=== PATIENT | male | born 1970 | race Caucasian/White ===

== ENCOUNTER 2022-06-08 14:24 | Inpatient (IN) | payer MEDICARE, MEDICAID ==
[2022-06-08] MEDS: LORazepam 2 MG TABLET PO PRN (17:13)
[2022-06-08] MEDS: HALOPERIDOL 5 MG TABLET PO PRN (17:13)
[2022-06-08] MEDS ORDERED: INFLUENZA VIRUS VACCINE QVS 2022-23 (6MO+)/PF 60 MCG/0.5 ML SYRINGE IM. ONE (18:45)
[2022-06-08 21:14] VITALS: BP 100/61
[2022-06-09] MEDS ORDERED: ALBUTEROL SULFATE HFA 90 MCG/PUFF 8 GM INHALER IH PRN (09:15)
[2022-06-09] MEDS ORDERED: NICOTINE 14 MG/24 HOUR PATCH TD PRN (09:15)
[2022-06-09] MEDS ORDERED: LOPERAMIDE HCL 2 MG CAPSULE PO PRN (09:15)
[2022-06-09] MEDS ORDERED: MAGNESIUM HYDROXIDE SUSPENSION 30 ML UDCUP PO PRN (09:15)
[2022-06-09] MEDS ORDERED: ONDANSETRON HCL 4 MG TABLET PO PRN (09:15)
[2022-06-09] MEDS ORDERED: MAG HYDROX/AL HYDROX/SIMETH ES 30 ML SUSPENSION UDCUP PO PRN (09:15)
[2022-06-09] MEDS ORDERED: CloNIDine HCL 0.1 MG TABLET PO PRN (09:15)
[2022-06-09] MEDS ORDERED: GuaiFENesin/D-METHORPHAN [SUGAR-FREE] 200-20MG/10 ML SYRUP UDCUP PO PRN (09:15)
[2022-06-09] MEDS ORDERED: DOCUSATE SODIUM 100 MG CAPSULE PO PRN (09:15)
[2022-06-09] MEDS ORDERED: PETROLATUM,WHITE 28 GM JELLY TP PRN (09:15)
[2022-06-09] MEDS: LORazepam 2 MG TABLET PO PRN (11:28)
[2022-06-09] MEDS: HALOPERIDOL 5 MG TABLET PO PRN (11:28)
[2022-06-09] MEDS ORDERED: ChlorproMAZINE HCL 50 MG/2 ML AMP ONE (11:47)
[2022-06-09] MEDS ORDERED: LORazepam 2 MG/ML VIAL ONE (11:48)
[2022-06-09] MEDS ORDERED: DiphenhydrAMINE HCL 50 MG/ML VIAL ONE (11:48)
[2022-06-09] MEDS ORDERED: DiphenhydrAMINE HCL 50 MG/ML VIAL IM ONE (12:00)
[2022-06-09] MEDS ORDERED: LORazepam 2 MG/ML VIAL IM ONE (12:00)
[2022-06-09] MEDS ORDERED: ChlorproMAZINE HCL 50 MG/2 ML AMP IM ONE (12:00)
[2022-06-09] MEDS: DIVALPROEX SODIUM 500 MG DR TABLET PO SCH (20:57)
[2022-06-09] MEDS: OLANZapine 5 MG RAPDIS TABLET PO SCH (20:58)
[2022-06-10] MEDS ORDERED: LORazepam 2 MG/ML VIAL IM ONE (08:00)
[2022-06-10] MEDS ORDERED: ChlorproMAZINE HCL 50 MG/2 ML AMP IM ONE (08:00)
[2022-06-10] MEDS ORDERED: DiphenhydrAMINE HCL 50 MG/ML VIAL IM ONE (08:00)
[2022-06-10] MEDS: OLANZapine 5 MG RAPDIS TABLET PO SCH ×2 (09:00→21:00)
[2022-06-10] MEDS: DIVALPROEX SODIUM 500 MG DR TABLET PO SCH ×2 (09:00→21:00)
[2022-06-10 21:32] VITALS: BP 104/68
[2022-06-10] MEDS: HALOPERIDOL 5 MG TABLET PO PRN (23:52)
[2022-06-10] MEDS: LORazepam 2 MG TABLET PO PRN (23:52)
[2022-06-10] MEDS: ZOLPIDEM TARTRATE 10 MG TABLET PO PRN (23:52)
[2022-06-11 07:10] LABS: AMPHET/METH SCREEN,URINE NEGATIVE (NEGATIVE); BARBITURATE SCREEN, URINE NEGATIVE (NEGATIVE); BENZODIAZEPINES SCREEN,URINE NEGATIVE (NEGATIVE); CANNABINOID SCREEN,URINE NEGATIVE (NEGATIVE); COCAINE SCREEN,URINE NEGATIVE (NEGATIVE); METHADONE SCREEN, URINE NEGATIVE (NEGATIVE); OPIATE SCREEN,URINE NEGATIVE (NEGATIVE)
[2022-06-11 07:19] LABS: PHENCYCLIDINE SCREEN,URINE NEGATIVE (NEGATIVE)
[2022-06-11 07:54] LABS: APPEARANCE,URINE CLEAR (CLEAR); BILIRUBIN,URINE NEGATIVE (NEGATIVE); GLUCOSE, URINE (UA) NEGATIVE (NEGATIVE); KETONES,URINE NEGATIVE (NEGATIVE); LEUKOCYTE ESTERASE ,URINE NEGATIVE (NEGATIVE); NITRATE,URINE NEGATIVE (NEGATIVE); OCCULT BLOOD,URINE NEGATIVE (NEGATIVE); PH,URINE 6.5 (5.0-8.0); PROTEIN,URINE TRACE mg/dL (NEGATIVE); SPECIFIC GRAVITIY, URINE 1.026 (1.003-1.030); UROBILINOGEN,URINE <=1.0 mg/dL (<=1.0)
[2022-06-11] MEDS: OLANZapine 5 MG RAPDIS TABLET PO SCH ×3 (09:00→21:00)
[2022-06-11] MEDS: DIVALPROEX SODIUM 500 MG DR TABLET PO SCH ×3 (09:00→21:00)
[2022-06-11] MEDS: LORazepam 2 MG TABLET PO PRN (10:41)
[2022-06-12 06:50] LABS: EOSINOPHILS % (AUTO) 4.1 % (1.0-6.0); HEMOGLOBIN 11.5 g/dL (13.5-17.5); LYMPHOCYTES # (AUTO) 1.5 K/uL (1.0-4.8); LYMPHOCYTES % (AUTO) 28.7 % (22.0-44.0); MEAN CORPUSCULAR HEMOGLOBIN 30.2 pg (26.0-34.0); MEAN CORPUSCULAR HGB CONC 33.9 G/dL (31.0-37.0); MEAN CORPUSCULAR VOLUME 89 fL (80-100); MONOCYTES # (AUTO) 0.5 K/uL (0.1-1.0); MONOCYTES % (AUTO) 8.7 % (2.0-9.0); NEUTROPHILS % (AUTO) 57.5 % (40.0-70.0); PLATELET COUNT (AUTO) 286 K/uL (150-450); RED BLOOD CELL COUNT(AUTO) 3.82 MIL/uL (4.50-5.90); RED CELL DISTRIBUTION WIDTH 13.8 % (11.5-14.5)
[2022-06-12 07:30] LABS: HEMOGLOBIN A1C 5.3 % (3.8-5.6)
[2022-06-12 07:39] LABS: ALANINE AMINOTRANSFERASE 34 U/L (12-78); ALBUMIN 3.4 g/dL (3.4-5.0); ALKALINE PHOSPHATASE 90 U/L (46-116); ANION GAP 5 mmol/L (8-16); ASPARTATE AMINOTRANSFERASE 40 U/L (15-37); BILIRUBIN,TOTAL 0.2 mg/dL (0.1-1.0); CALCIUM, TOTAL 8.7 mg/dL (8.8-10.5); CARBON DIOXIDE 31 mmol/L (22-29); CHLORIDE 99 mmol/L (98-107); CHOL/HDL RATIO 3.6 (4.2-7.3); CHOLESTEROL 186 mg/dL (131-200); CREATININE 1.05 mg/dL (0.60-1.30); FREE T4 (FREE THYROXINE) 0.39 ng/dL (0.76-1.46); GLUCOSE,RANDOM 91 mg/dL (70-110); HDL CHOLESTEROL 51 mg/dL (40-60); LDL CHOL (CALC.) 108 mg/dL (0-130); POTASSIUM 4.4 mmol/L (3.5-5.1); SODIUM SERUM 135 mmol/L (136-145); TOTAL PROTEIN, SERUM 6.7 g/dL (6.4-8.2); TRIGLYCERIDES 135 mg/dL (15-150); UREA NITROGEN, BLOOD 21 mg/dL (7-18)
[2022-06-12 08:07] LABS: GLOMERULAR FILTR. RATE CALC > 60 mL/min (>60); THYROID STIMULATING HORMONE 137.71 uIU/mL (0.36-3.74)
[2022-06-12 08:29] VITALS: BP 140/89
[2022-06-12] MEDS: DIVALPROEX SODIUM 500 MG DR TABLET PO SCH ×2 (10:09→21:19)
[2022-06-12] MEDS: OLANZapine 5 MG RAPDIS TABLET PO SCH ×2 (10:09→21:19)
[2022-06-12] MEDS: HALOPERIDOL 5 MG TABLET PO PRN (16:22)
[2022-06-12] MEDS: LORazepam 2 MG TABLET PO PRN ×2 (16:22→21:20)
[2022-06-12 20:19] VITALS: BP 138/78
[2022-06-12] MEDS: ZOLPIDEM TARTRATE 10 MG TABLET PO PRN (21:20)
[2022-06-13 08:11] VITALS: BP 140/99
[2022-06-13] MEDS: OLANZapine 5 MG RAPDIS TABLET PO SCH ×2 (08:22→20:52)
[2022-06-13] MEDS: DIVALPROEX SODIUM 500 MG DR TABLET PO SCH ×2 (08:22→20:52)
[2022-06-13] MEDS: IBUPROFEN 400 MG TABLET PO PRN ×2 (08:25→16:35)
[2022-06-13] MEDS: ACETAMINOPHEN 325 MG TABLET PO PRN (14:39)
[2022-06-13] MEDS: HALOPERIDOL 5 MG TABLET PO PRN (16:15)
[2022-06-13] MEDS: LORazepam 2 MG TABLET PO PRN (16:15)
[2022-06-13 20:19] VITALS: BP 134/92
[2022-06-13] MEDS: ZOLPIDEM TARTRATE 10 MG TABLET PO PRN (20:52)
[2022-06-14] MEDS: IBUPROFEN 400 MG TABLET PO PRN (05:36)
[2022-06-14] MEDS: LEVOTHYROXINE SODIUM 100 MCG TABLET PO SCH (06:21)
[2022-06-14] MEDS: LORazepam 2 MG TABLET PO PRN ×2 (08:20→17:03)
[2022-06-14] MEDS: OLANZapine 5 MG RAPDIS TABLET PO SCH ×2 (08:20→20:44)
[2022-06-14] MEDS: HALOPERIDOL 5 MG TABLET PO PRN ×2 (08:20→17:04)
[2022-06-14] MEDS: DIVALPROEX SODIUM 500 MG DR TABLET PO SCH ×2 (08:20→20:44)
[2022-06-14 08:38] VITALS: BP 137/86
[2022-06-14 20:12] VITALS: BP 142/84
[2022-06-14] MEDS: ZOLPIDEM TARTRATE 10 MG TABLET PO PRN (20:44)
[2022-06-15] MEDS: LEVOTHYROXINE SODIUM 100 MCG TABLET PO SCH (06:24)
[2022-06-15] MEDS: DIVALPROEX SODIUM 500 MG DR TABLET PO SCH ×2 (08:02→20:29)
[2022-06-15] MEDS: LORazepam 2 MG TABLET PO PRN ×2 (08:02→20:28)
[2022-06-15] MEDS: HALOPERIDOL 5 MG TABLET PO PRN (08:02)
[2022-06-15] MEDS: OLANZapine 5 MG RAPDIS TABLET PO SCH ×2 (08:03→20:29)
[2022-06-15 08:26] LABS: GLUCOMETER DEV NAME(LOC) POC.BV
[2022-06-15 15:22] VITALS: BP 137/73
[2022-06-15 20:21] VITALS: BP 129/85
[2022-06-15] MEDS: ZOLPIDEM TARTRATE 10 MG TABLET PO PRN (20:28)
[2022-06-16] MEDS: HALOPERIDOL 5 MG TABLET PO PRN ×2 (06:31→16:09)
[2022-06-16] MEDS: LORazepam 2 MG TABLET PO PRN ×2 (06:31→16:09)
[2022-06-16] MEDS: LEVOTHYROXINE SODIUM 100 MCG TABLET PO SCH (06:31)
[2022-06-16 08:09] VITALS: BP 136/74
[2022-06-16] MEDS: OLANZapine 5 MG RAPDIS TABLET PO SCH ×2 (08:26→20:20)
[2022-06-16] MEDS: DIVALPROEX SODIUM 500 MG DR TABLET PO SCH ×2 (08:26→20:20)
[2022-06-16 20:15] VITALS: BP 133/90
[2022-06-16] MEDS: ZOLPIDEM TARTRATE 10 MG TABLET PO PRN (20:21)
[2022-06-17] MEDS: LEVOTHYROXINE SODIUM 100 MCG TABLET PO SCH (05:56)
[2022-06-17] MEDS: LORazepam 2 MG TABLET PO PRN ×2 (05:56→16:23)
[2022-06-17] MEDS: HALOPERIDOL 5 MG TABLET PO PRN ×2 (05:56→16:23)
[2022-06-17] MEDS: OLANZapine 5 MG RAPDIS TABLET PO SCH ×2 (08:25→20:12)
[2022-06-17] MEDS: DIVALPROEX SODIUM 500 MG DR TABLET PO SCH ×2 (08:25→20:12)
[2022-06-17 09:51] VITALS: BP 148/72
[2022-06-17] MEDS: ZOLPIDEM TARTRATE 10 MG TABLET PO PRN (20:12)
[2022-06-17 20:25] VITALS: BP 146/84
[2022-06-18] MEDS: LEVOTHYROXINE SODIUM 100 MCG TABLET PO SCH (06:41)
[2022-06-18] MEDS: LORazepam 2 MG TABLET PO PRN ×3 (06:42→16:55)
[2022-06-18] MEDS: HALOPERIDOL 5 MG TABLET PO PRN ×3 (06:42→16:55)
[2022-06-18] MEDS: DIVALPROEX SODIUM 500 MG DR TABLET PO SCH ×2 (08:15→20:09)
[2022-06-18] MEDS: OLANZapine 5 MG RAPDIS TABLET PO SCH ×2 (08:15→20:09)
[2022-06-18 08:22] VITALS: BP 152/90
[2022-06-18] MEDS: ZOLPIDEM TARTRATE 10 MG TABLET PO PRN (20:07)
[2022-06-18 20:16] VITALS: BP 148/84
[2022-06-19] MEDS: LEVOTHYROXINE SODIUM 100 MCG TABLET PO SCH (06:47)
[2022-06-19] MEDS: LORazepam 2 MG TABLET PO PRN (06:47)
[2022-06-19] MEDS: HALOPERIDOL 5 MG TABLET PO PRN (06:47)
[2022-06-19 08:37] VITALS: BP 138/84
[2022-06-19] MEDS: OLANZapine 5 MG RAPDIS TABLET PO SCH ×2 (08:45→21:28)
[2022-06-19] MEDS: DIVALPROEX SODIUM 500 MG DR TABLET PO SCH ×2 (08:45→21:27)
[2022-06-19] MEDS: ACETAMINOPHEN 325 MG TABLET PO PRN (13:19)
[2022-06-20] MEDS: ACETAMINOPHEN 325 MG TABLET PO PRN (03:50)
[2022-06-20] MEDS: LEVOTHYROXINE SODIUM 100 MCG TABLET PO SCH (06:27)
[2022-06-20] MEDS: OLANZapine 5 MG RAPDIS TABLET PO SCH (08:01)
[2022-06-20] MEDS: DIVALPROEX SODIUM 500 MG DR TABLET PO SCH (08:01)
[2022-06-20 08:14] VITALS: BP 135/78
[2022-06-20] MEDS ORDERED: OLAN7.5T22 PO (08:52)
[2022-06-20] MEDS ORDERED: DIVA-112 PO (08:52)
[2022-06-20] MEDS ORDERED: LEVO100 PO (08:52)
== END 2022-06-20 13:24 | disposition home or self-care (01) | DRG 885 ==
LOC: B3A 16:55
PROVIDERS: ADMIT Psychiatry & Neurology Psychiatry; ATTEND Psychiatry & Neurology Psychiatry
DX: F25.0 Schizoaffective disorder, bipolar type (principal); F10.10 Alcohol abuse, uncomplicated; F15.10 Other stimulant abuse, uncomplicated; Z20.822 Contact with and (suspected) exposure to COVID-19; G47.00 Insomnia, unspecified; Z79.899 Other long term (current) drug therapy
CPT/HCPCS: 80053; 80061; 80164; 80307; 81003; 83036; 84439; 84443; 85025; J1200; J2060; J3230

== ENCOUNTER 2023-12-22 13:25 | Outpatient (CLI) | payer MEDICARE, OTHER ==
[2023-12-22 16:28] VITALS: BP 152/90; PULSE 81; RESP 18; TEMP 97.8; O2SAT 100
[2023-12-22] MEDS: DIAZEPAM 10 MG TABLET PO ONE (20:39)
[2023-12-22] MEDS: HALOPERIDOL 5 MG TABLET PO SCH (20:39)
[2023-12-22] MEDS ORDERED: TraZODone HCL 50 MG TABLET PO SCH (21:00)
[2023-12-23] MEDS: LEVOTHYROXINE SODIUM 88 MCG TABLET PO SCH (06:37)
[2023-12-23 07:58] VITALS: BP 138/86; PULSE 72; RESP 18; TEMP 98; O2SAT 99
[2023-12-23] MEDS: SERTRALINE HCL 50 MG TABLET PO SCH (08:00)
[2023-12-23] MEDS: PROPRANOLOL HCL 20 MG TABLET PO PRN (08:00)
[2023-12-23] MEDS ORDERED: TraZODone HCL 50 MG TABLET PO SCH (21:00)
== END 2023-12-23 10:00 | disposition home or self-care (01) ==
LOC: CSU 13:25 → EDSTATUS 12-24 06:37
PROVIDERS: ATTEND Nurse Practitioner Acute Care
DX: F20.9 Schizophrenia, unspecified (principal); F39 Unspecified mood [affective] disorder
CPT/HCPCS: 90839; 90840; Z7610